=== PATIENT | female | born 1975 | race American Indian/Alaskan Native ===

== ENCOUNTER 2019-08-26 13:28 | Emergency (ER) | payer SELFPAY ==
[2019-08-26 14:38] VITALS: BP 173/96
--- NOTE | 2019-08-26 14:40 | Emergency Department Report ---
Chief Complaint: Urogenital-Female Stated Complaint: VAGINAL DISCHARGE - HPI History of Present Illness: 44 yo F with white vaginal discharge x 3 weeks. Pt reports she took flagyl x 1 week, but the discharge is still present. Denies abdominal pain. Denies fever. Denies vaginal bleeding. Denies urinary frequency. - ROS Review of Systems: Comment: All other systems reviewed and negative Constitutional: denies: chills, fever Gastrointestinal: denies abdominal pain Genitourinary: reports vaginal discharge; denies urinaryfrequency, hematuria Musculoskeletal: denies back pain - Exam Physical Exam: - General Limitations: No Limitations General appearance: alert, in no apparent distress - Head Head exam: Present: atraumatic, normocephalic - Eye Eye exam: Present: normal appearance, EOMI - ENT ENT exam: Present: mucous membranes moist - Neck Neck exam: Present: normal inspection - Respiratory Respiratory exam: Present: normal lung sounds bilaterally. Absent: respiratory distress - Cardiovascular Cardiovascular Exam: Present: regular rate, normal rhythm - GI/Abdominal GI/Abdominal exam: soft, nontender - Extremities Exam Extremities exam: Present: normal inspection - Back Exam Back exam: Absent: CVA tenderness - Neurological Exam Neurological exam: Present: alert, oriented X3 - Psychiatric Psychiatric exam: Present: normal affect, normal mood - Skin Skin exam: Present: warm, dry, intact, normal color MSE screening note: Focused history and physical exam performed. Due to findings the following was ordered:n/a Pt w/ vaginal discharge x 3 weeks. Previously treated w/ flagyl. Abdomen is soft, nontender. No CVA tenderness on exam. Pt is afebrile. She denies urinary symptoms such as dysuria and frequency. Pt does not have an emergent medical condition at this time. Outpt resources given and follow up advised. Return precautions given. ED Medical Decision Making - Medical Decision Making Pt w/ vaginal discharge x 3 weeks. Previously treated w/ flagyl. Abdomen is soft, nontender. No CVA tenderness on exam. Pt is afebrile. She denies urinar y symptoms such as dysuria and frequency. Pt does not have an emergent medical condition at this time. Outpt resources given and follow up advised. Return precautions given. ED Disposition for MSE Clinical Impression: Vaginal discharge Disposition: MED SCREENING EXAM-LEFT Is pt being admited?: No Condition: Stable Instructions: Vaginitis (ED) Referrals: LORA ESPINOZA MD [Staff Physician] - 3-5 Days [facility] [Provider Group] - 3-5 Days [facility] [Provider Group] - 3-5 Days [facility] [Outside] - 3-5 Days Time of Disposition: 14:39
== END 2019-08-26 14:50 | disposition left against medical advice (07) ==
LOC: ED 13:28
DX: N89.8 Other specified noninflammatory disorders of vagina (principal)
CPT/HCPCS: 99282